=== PATIENT | male | born 1960 | race Caucasian/White ===

== ENCOUNTER 2020-12-07 08:18 | Observation (INO) ==
[2020-12-07] MEDS ORDERED: Aspirin 81 MG TAB.CHEW PO ONE (08:38)
[2020-12-07 09:02] LABS: Basophils # 0.1 K/mcL (0.0-0.2); Basophils % 0.9 %; Eosinophils # 0.7 K/mcL (0.0-0.6); Eosinophils % 10.1 %; Hematocrit 43.9 % (37.5-50.1); Hemoglobin 15.4 g/dL (12.9-16.9); Immature Granulocytes % 0.3 % (0-4); Lymphocytes % 14.7 %; Mean Corpuscular HGB Conc 35.1 g/dL (31.6-35.5); Mean Corpuscular Hemoglobin 32.7 pg (28.0-33.3); Mean Corpuscular Volume 93.2 fL (83.0-100.0); Mean Platelet Volume 9.1 fL (9.4-12.4); Monocytes # 0.7 K/mcL (0.0-1.3); Monocytes % 10.7 %; Neutrophils # 4.3 K/mcL (1.6-8.9); Platelet Count 223 K/mcL (140-400); Red Blood Count 4.71 M/mcL (4.19-5.50); Segmented Neutrophils % 63.3 %; White Blood Count 6.8 K/mcL (4.3-11.1)
[2020-12-07 09:10] LABS: INR 1.1; Prothrombin Time 12.8 Seconds (9.4-12.1)
[2020-12-07 09:13] LABS: Activated Partial Thrombo Time 31.3 Seconds (26.0-36.0)
[2020-12-07 09:22] LABS: Lipase 28 Units/L (11-82)
[2020-12-07 09:24] LABS: Troponin I < 0.03 ng/mL (< 0.04)
[2020-12-07 10:05] LABS: Alanine Aminotransferase 24 Units/L (7-52); Albumin 3.9 g/dL (3.5-5.7); Albumin/Globulin Ratio 1.2 (1.1-2.2); Alkaline Phosphatase 83 Units/L (34-104); Aspartate Amino Transferase 30 Units/L (13-39); BUN/Creatinine Ratio 11 (6-26); Bilirubin,Total 0.5 mg/dL (0.3-1.0); Blood Urea Nitrogen 9 mg/dL (6-20); Calcium 9.1 mg/dL (8.6-10.3); Carbon Dioxide 25 mEq/L (23-29); Chloride 101 mEq/L (98-107); Globulin 3.2 g/dL (2.4-3.5); Glucose 101 mg/dL (70-105); Osmolality,Calculated 285 (280-300); Potassium 3.6 mEq/L (3.5-5.1); Sodium 138 mEq/L (136-145); Total Protein 7.1 g/dL (6.4-8.9); eGFR For African Americans > 60 (> 60); eGFR For Non-African Americans > 60 (> 60)
[2020-12-07] MEDS: Nitroglycerin 0.4 MG TAB.SUBL SL ONE ×2 (11:10→11:45)
[2020-12-07 12:23] LABS: Troponin I < 0.03 ng/mL (< 0.04)
[2020-12-07] MEDS ORDERED: Perflutren Lipid Microsphere 1.3 ML in 0.9 % Sodium Chloride 8.7 ML IVP PRN (12:59)
[2020-12-07] MEDS ORDERED: Naloxone 0.4 MG/ML INJ IVP PRN (12:59)
[2020-12-07] MEDS ORDERED: Nitroglycerin 0.4 MG TAB.SUBL SL PRN (13:14)
[2020-12-07 13:27] LABS: Chol/HDL Ratio 3.1 (0-4.9); Cholesterol 146 mg/dL (< 200); HDL Cholesterol 47 mg/dL (40-59); LDL Cholesterol,Calculated 81 mg/dL (< 100); Triglycerides 92 mg/dL (< 150)
[2020-12-07] MEDS ORDERED: *HR* LORazepam 2 MG/ML VIAL IVP PRN ×3 (14:49)
[2020-12-07 14:52] LABS: Estimated Average Glucose 103 mg/dl; Hemoglobin A1C 5.2 %
[2020-12-07] MEDS: Thiamine (B-1) 100 MG, Folic Acid 1 MG, MVI, adult with vitamin K 10 ML in 0.9 % Sodi... IVPB SCH (18:09)
[2020-12-07] MEDS: *HR* Heparin 5,000 UNIT/ML VIAL SQ SCH (18:09)
[2020-12-08] MEDS: *HR* Heparin 5,000 UNIT/ML VIAL SQ SCH ×2 (05:02→18:14)
[2020-12-08] MEDS ORDERED: Regadenoson 0.4 MG/5 ML SYRINGE IVP ONE (06:30)
[2020-12-08] MEDS ORDERED: *HR* LORazepam 0.5 MG TABLET PO PRN (08:54)
[2020-12-08] MEDS ORDERED: Aspirin 81 MG TAB.CHEW PO SCH (09:00)
[2020-12-08] MEDS ORDERED: Thiamine (B-1) 100 MG TABLET PO SCH (09:00)
[2020-12-08] MEDS ORDERED: Folic Acid 1 MG TABLET PO SCH (09:00)
[2020-12-08] MEDS ORDERED: 0.9 % Sodium Chloride 2,000 ML ONE (14:20)
[2020-12-08] MEDS ORDERED: Heparin 1,000 UNITS/500 mL 500 ML ONE (14:20)
[2020-12-08] MEDS ORDERED: ISOVUE-370 200 ML INFUS..BTL ONE (14:20)
[2020-12-08] MEDS ORDERED: *HR* Heparin 10,000 UNIT/10 ML VIAL ONE (14:20)
[2020-12-08] MEDS ORDERED: Nitroglycerin 1,000 MCG/5 ML VIAL IV ONE (14:21)
[2020-12-08] MEDS ORDERED: *HR* Midazolam HCl 2 MG/2 ML VIAL ONE ×2 (15:44→16:28)
[2020-12-08] MEDS ORDERED: *HR* FentaNYL (PF) 100 MCG/2 ML VIAL ONE (15:45)
[2020-12-08] MEDS ORDERED: *HR* Bivalirudin 250 MG VIAL IVC ONE (15:51)
[2020-12-08] MEDS: Thiamine (B-1) 100 MG, Folic Acid 1 MG, MVI, adult with vitamin K 10 ML in 0.9 % Sodi... IVPB SCH (18:15)
[2020-12-08 18:21] VITALS: PULSE 80; TEMP 97.8
[2020-12-08 19:55] VITALS: BP 132/68; O2SAT 98
== END 2020-12-08 20:01 | disposition home or self-care (01) ==
LOC: 3BNU 08:18 → EMEROOARM 08:18 → SUATTDRO 14:14 → 3BNU 15:25
PROVIDERS: ADMIT Internal Medicine; ATTEND Internal Medicine